=== PATIENT | male | born 1945 | race Caucasian/White ===

== ENCOUNTER 2017-06-19 15:41 | Inpatient (IN) | payer OTHER, MEDICARE ==
[~2017-06-19] VITALS: Ht 185.4 cm; Wt 96.6 kg
[~2017-06-19 15:41] MED LIST: ALTACE5 MG PO; Afrin,Genasal Decon, BOTH NARES; COUMADIN5 MG PO; DuoNeb IH; LOVASTATIN10 MG PO; PRINIVIL20 MG PO; Protonix PO; predniSONE PO
[2017-06-19 16:48] LABS: EOSINOPHIL (%) 0 % (0-5); IMMATURE GRANULOCYTE (%) 0.5 % (0.0-0.7); IMMATURE GRANULOCYTE COUNT 0.1 K/uL; INSTRUMENT ABS NEUTROPHIL CT 13.5 K/uL; LYMPHOCYTE COUNT 0.3 K/uL (1.0-2.8); MCH 32.7 PG (29.0-34.0); MCHC 33.1 G/DL (30.0-36.0); MCV 98.9 FL (86-99); MEAN PLAT.VOLUME 10.7 uM^3 (9.0-12.4); MONOCYTE (%) 7.3 % (3-12); MONOCYTE COUNT 1.1 K/uL (0-0.8); NEUTROPHIL (%) 90.4 % (45-76); NEUTROPHIL COUNT 13.5 K/uL (1.8-6.4); PLATELET COUNT 156 K/uL (156-360); RBC DIS.WIDTH-CV 11.9 % (11.8-14.6); RBC DIS.WIDTH-SD 43.4 % (39-53); RED BLOOD COUNT 4.55 M/uL (4.00-5.50)
[2017-06-19 16:58] LABS: CHLORIDE 106 mEq/L (99-109); POTASSIUM 3.8 mEq/L (3.7-5.4); SODIUM 138 mEq/L (136-147)
[2017-06-19 17:00] LABS: GLUCOSE 125 mg/dL (70-99)
[2017-06-19 17:02] LABS: ANION GAP 11 MEQ/L (2-14); TOTAL BILIRUBIN 0.7 mg/dL (0.0-1.0)
[2017-06-19 17:04] LABS: ALKALINE PHOSPHATASE 72 IU/L (3-129); GFR ESTIMATE (CALCULATED) > 59 mL/min/
[2017-06-19 17:05] LABS: UREA NITROGEN (BUN) 19 mg/dL (9-23)
[2017-06-19 17:06] LABS: DIRECT BILIRUBIN 0.3 mg/dL (0.0-0.3)
[2017-06-19 17:07] LABS: LIPASE 12 U/L (1.0-51.0)
[2017-06-19 17:10] LABS: TROP-I INTERPRETATION NEGATIVE; TROPONIN-I < 0.01 ng/mL (0.0-0.30)
[2017-06-19 17:15] LABS: INTER. NORMALIZED RATIO 3.5
[2017-06-19 17:18] LABS: PTT 41.7 SEC (25-37)
[2017-06-19] MEDS ORDERED: COUGH DROPS1 EAC1 MM (19:03)
[2017-06-19] MEDS ORDERED: COUMADIN1 MG PO (19:03)
[2017-06-19 21:55] VITALS: BP 154/82
[2017-06-20 06:21] LABS: HEMATOCRIT 39.8 % (38.0-50.0); MCHC 33.4 G/DL (30.0-36.0); MCV 101.8 FL (86-99); MEAN PLAT.VOLUME 10.8 uM^3 (9.0-12.4); PLATELET COUNT 140 K/uL (156-360); RBC DIS.WIDTH-CV 12.3 % (11.8-14.6); RBC DIS.WIDTH-SD 46.1 % (39-53); RED BLOOD COUNT 3.91 M/uL (4.00-5.50); WHITE BLOOD COUNT 10.9 K/uL (4.1-10.2)
[2017-06-20 06:30] LABS: INTER. NORMALIZED RATIO 3.6; PROTHROMBIN TIME 41.6 SEC (10.2-12.9)
[2017-06-20 06:45] LABS: ANION GAP 8 MEQ/L (2-14); CHLORIDE 109 MEQ/L (99-109); GFR ESTIMATE (CALCULATED) > 59 mL/min/; GLUCOSE 144 mg/dL (70-99); SAMPLE HEMOLYSIS CHECK 1; SAMPLE ICTERIC CHECK 0; SAMPLE LIPEMIA CHECK 0; SODIUM 138 MEQ/L (136-147); UREA NITROGEN (BUN) 21 mg/dL (9-23)
[2017-06-20 06:46] LABS: POTASSIUM 4.6 MEQ/L (3.7-5.4)
[2017-06-20 08:54] VITALS: BP 159/70
[2017-06-20 11:42] VITALS: BP 159/72
[2017-06-20] MEDS ORDERED: MEDROL DOSEPAK4 MG PO (14:32)
[2017-06-20] MEDS ORDERED: DUONEB 2.5-0.5 M3 ML AEROSOL (14:32)
[2017-06-20] MEDS ORDERED: AZITHROMYCIN500 M1 PO (16:53)
== END 2017-06-20 16:33 | disposition home or self-care (01) | DRG 204 ==
LOC: EME 15:41 → EDOF 20:30 → 5SOUTH 20:30 → ENRESERV 20:31 → 5SOUTH 21:41
PROVIDERS: Emergency Medicine; Hospitalist
DX: R06.02 Shortness of breath (principal); E89.0 Postprocedural hypothyroidism; E78.5 Hyperlipidemia, unspecified; I25.89 Other forms of chronic ischemic heart disease; R09.02 Hypoxemia; E04.2 Nontoxic multinodular goiter; I10 Essential (primary) hypertension; J39.8 Other specified diseases of upper respiratory tract; R06.1 Stridor; R91.1 Solitary pulmonary nodule; Z95.0 Presence of cardiac pacemaker; Z85.46 Personal history of malignant neoplasm of prostate; Z79.01 Long term (current) use of anticoagulants; Z82.49 Family history of ischemic heart disease and other diseases of the circulatory system; Z86.718 Personal history of other venous thrombosis and embolism
CPT/HCPCS: 70491; 71020; 71275; 80048; 80076; 83605; 83690; 83880; 84484; 85025; 85027; 85610; 85730; 87040; 93005; 94799; 99202; 99281; 99285; J0696; J1100; J2920; J7030; J7050; S0028